=== PATIENT | male | born 1975 | race Caucasian/White ===

== ENCOUNTER 2017-07-11 20:07 | Emergency (ER) | payer SELFPAY ==
[2017-07-11 20:07] VITALS: BMI 31.6
--- NOTE | 2017-07-11 20:31 | C.PDOC ---
History Of Present Illness 42 y/o male presents to ED with complaints of sob and dizziness since earlier today. Patient states he has been outside all day painting and developed symptoms. Patient also reports pain to both legs and admits to being an occasional smoker. At ed patient is speaking in full sentences and denies loc, headache, chest pain or any other complaints at this time. Time Seen by Provider: 07/11/17 20:30 Chief Complaint (Nursing): Shortness Of Breath History Per: Patient History/Exam Limitations: no limitations Onset/Duration Of Symptoms: Hrs Current Symptoms Are (Timing): Still Present Quality: "Pain" Severity: Mild Pain Scale Rating Of: 2 Associated Symptoms: Dizziness Recent travel outside of the [place]: No Past Medical History Reviewed: Historical Data, Nursing Documentation, Vital Signs Vital Signs: Last Vital Signs Temp 98.3 F 07/11/17 20:14 Pulse 96 H 07/11/17 20:14 Resp 16 07/11/17 21:40 BP 139/93 H 07/11/17 20:14 Pulse Ox 97 07/11/17 21:30 - Medical History PMH: Anxiety, Asthma, Diabetes, Gastritis Surgical History: Hernia Repair Family History: States: No Known Family Hx - Social History Hx Tobacco Use: Yes Hx Alcohol Use: Yes Hx Substance Use: No - Immunization History Hx Tetanus Toxoid Vaccination: Yes Hx Influenza Vaccination: Yes Hx Pneumococcal Vaccination: Yes Review Of Systems Constitutional: Negative for: Fever, Chills Cardiovascular: Negative for: Chest Pain Respiratory: Positive for: Shortness of Breath Gastrointestinal: Negative for: Nausea, Vomiting Musculoskeletal: Positive for: Leg Pain. Negative for: Back Pain Skin: Negative for: Rash Neurological: Positive for: Dizziness. Negative for: Weakness, Numbness Physical Exam - Physical Exam Appears: Non-toxic, No Acute Distress Skin: Warm, Dry, No Rash Head: Normacephalic Eye(s): bilateral: PERRL, EOMI Oral Mucosa: Moist Chest: Symmetrical Cardiovascular: Rhythm Regular, No Murmur Respiratory: No Rales, No Rhonchi, No Wheezing Gastrointestinal/Abdominal: Soft, No Tenderness, No Guarding, No Rebound Extremity: No Pedal Edema, Capillary Refill (<2 seconds) Extremity: Bilateral: Atraumatic, Normal ROM Neurological/Psych: Oriented x3 ED Course And Treatment - Laboratory Results Result Diagrams: 07/11/17 21:28 07/11/17 21:28 O2 Sat by Pulse Oximetry: 97 (RA) Pulse Ox Interpretation: Normal - Radiology CXR: Interpreted by Me, Viewed By Me CXR Interpretation: No: Infiltrates, Fracture, Pnemothorax Reevaluation Time: 01:02 Reassessment Condition: Improved Medical Decision Making Medical Decision Making: Upon provider reevaluation patient is feeling better, is medically stable, and requires no further treatment in the ED at this time. Patient will be discharged home with Rx for albuterol, zithromax . Counseling was provided and all questions were answered regarding diagnosis and need for follow up with dr pavon. There is agreement to discharge plan. Return if symptoms persist or worsen. Disposition Counseled Patient/Family Regarding: Studies Performed, Diagnosis, Need For Followup, Rx Given - Disposition Referrals: Marvin Pavon MD [Medical Doctor] - Disposition: HOME/ ROUTINE Disposition Time: 20:31 Condition: FAIR Prescriptions: Albuterol HFA [Ventolin HFA 90 mcg/actuation (8 g)] 2 puff IH [id number] #1 puff Azithromycin [Zithromax Tri-Clint] 500 mg PO DAILY #3 tablet Instructions: Reactive Airways Disease (DC), Leg Pain (ED) Forms: [employer] (Azeri) - Clinical Impression Clinical Impression: Reactive airway disease, Leg pain - Scribe Statement The provider has reviewed the documentation as recorded by the Jhonnyibcharo Pascual All medical record entries made by the Scribe were at my direction and personally dictated by me. I have reviewed the chart and agree that the record accurately reflects my personal performance of the history, physical exam, medical decision making, and the department course for this patient. I have also personally directed, reviewed, and agree with the discharge instructions and disposition.
[2017-07-11] MEDS: Albuterol-Ipratrop 3 mg / 0.5 (3 ml) UD IH SCH ×3 (21:05→21:29)
[2017-07-11] MEDS ORDERED: Albuterol-Ipratrop 3 mg / 0.5 (3 ml) UD ONE (21:12)
[2017-07-11 21:38] LABS: BASO # 0.1 K/uL (0.0-0.2); BASO % 0.5 % (0.0-2.0); EOS # 0.2 K/uL (0.0-0.7); HEMATOCRIT 38.5 % (35.0-51.0); LYMPH # 2.1 K/uL (1.0-4.3); LYMPH % 18.5 % (20.0-40.0); MEAN CELL VOLUME 93.1 fL (80.0-94.0); MEAN CORPUSCULAR HEMOGLOBIN 32.1 pg (27.0-31.0); MEAN CORPUSCULAR HGB CONC 34.5 g/dL (33.0-37.0); MEAN PLATELET VOLUME 8.3 fL (7.2-11.7); MONO % 8.7 % (0.0-10.0); RED CELL DISTRIBUTION WIDTH 13.3 % (11.5-14.5); WHITE BLOOD COUNT 11.3 K/uL (4.8-10.8)
[2017-07-11 21:39] LABS: CHLORIDE 100 mmol/L (98-107)
[2017-07-11 21:40] LABS: SODIUM 137 mmol/L (132-148)
[2017-07-11 21:42] LABS: ALB/GLOB RATIO 1.3 (1.0-2.1); ALKALINE PHOSPHATASE 76 U/L (38-126); AST/SGOT 31 U/L (17-59); BILIRUBIN,TOTAL 0.5 mg/dL (0.2-1.3); BLOOD UREA NITROGEN 20 mg/dL (9-20); CARBON DIOXIDE 22 mmol/L (22-30); GFR AFRICAN-AMERICAN > 60; TOTAL PROTEIN 7.5 g/dL (6.3-8.3)
[2017-07-11 21:43] LABS: ALT/SGPT 44 U/L (21-72); CALCIUM 9.9 mg/dl (8.6-10.4); GLUCOSE,RANDOM 88 mg/dL (75-110)
[2017-07-11 21:57] LABS: RBC URINE 1 /hpf (0-3); URINE BILIRUBIN NEGATIVE (NEGATIVE); URINE BLOOD NEGATIVE (NEGATIVE); URINE COLOR Yellow (YELLOW); URINE GLUCOSE (UA) NORMAL (Normal); URINE KETONE NEGATIVE (NEGATIVE); URINE LEUKOCYTE ESTERASE NEG Leu/uL (Negative); URINE PROTEIN NEGATIVE (NEGATIVE); URINE UROBILINOGEN NORMAL mg/dL (0.2-1.0)
[2017-07-12 01:16] VITALS: BP 130/86; PULSE 90; RESP 20; TEMP 98.4; O2SAT 98
--- NOTE | 2017-07-12 07:17 | RAD ---
HISTORY: abd pain COMPARISON: None available. TECHNIQUE: Chest PA and lateral FINDINGS: Examination limited by habitus. LUNGS: No focal consolidation. Please note that chest x-ray has limited sensitivity for the detection of pulmonary masses. PLEURA: No significant pleural effusion identified. No definite pneumothorax . CARDIOVASCULAR: Heart size appears within normal limits. OSSEOUS STRUCTURES: Left lateral 7 rib fracture deformity appears chronic. Degenerative changes of the spine. VISUALIZED UPPER ABDOMEN: Unremarkable. OTHER FINDINGS: None. IMPRESSION: No focal consolidation, significant pleural effusion, or definite pneumothorax identified. Left lateral 7th rib fracture deformity appears chronic. Correlate clinically.
== END 2017-07-12 01:14 | disposition home or self-care (01) ==
LOC: C.ER 20:07
DX: J45.909 Unspecified asthma, uncomplicated (principal); M79.605 Pain in left leg; M79.604 Pain in right leg
CPT/HCPCS: 71020; 80053; 81001; 83690; 85025; 85610; 85730; 96374; 99283; J1885

== ENCOUNTER 2017-08-27 21:51 | Emergency (ER) | payer SELFPAY ==
[2017-08-27 21:52] VITALS: BMI 31.6
[2017-08-27 22:05] VITALS: BP 130/76; PULSE 92; RESP 20; TEMP 98.1; O2SAT 98
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
--- NOTE | 2017-08-28 10:32 | RAD ---
HISTORY: cough, fever COMPARISON: 07/11/2017 TECHNIQUE: Chest PA and lateral FINDINGS: LUNGS: No active pulmonary disease. PLEURA: No significant pleural effusion identified. No pneumothorax apparent. CARDIOVASCULAR: Normal. OSSEOUS STRUCTURES: No significant abnormalities. Old healed posterior lateral left rib fractures VISUALIZED UPPER ABDOMEN: Normal. OTHER FINDINGS: None. IMPRESSION: No active disease. No significant interval change compared to the prior examination(s). Concordant results with the preliminary interpretation rendered by the emergency department physician procedure.
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
== END 2017-08-28 00:25 | disposition home or self-care (01) ==
LOC: C.ER 21:51
DX: J20.9 Acute bronchitis, unspecified (principal); F17.210 Nicotine dependence, cigarettes, uncomplicated; S92.352D Displaced fracture of fifth metatarsal bone, left foot, subsequent encounter for fracture with routine healing; X95.9XXD Assault by unspecified firearm discharge, subsequent encounter

== ENCOUNTER 2017-09-07 08:58 | Emergency (ER) | payer SELFPAY ==
[2017-09-07 09:13] VITALS: RESP 18; TEMP 97.7
[2017-09-07] MEDS ORDERED: Naproxen 550 mg Tab PO STA (09:50)
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
[2017-09-07] MEDS ORDERED: Naproxen 550 mg Tab PO ONE (09:54)
[2017-09-07 10:08] VITALS: BP 130/86; PULSE 73
[2017-09-07 11:45] VITALS: O2SAT 99
== END 2017-09-07 10:13 | disposition home or self-care (01) ==
LOC: C.ER 08:58 → MERGE 08:58 → C.ER 10:13
DX: M79.672 Pain in left foot (principal); F41.9 Anxiety disorder, unspecified

== ENCOUNTER 2017-09-20 17:32 | Emergency (ER) | payer OTHER ==
[2017-09-20 17:32] VITALS: BMI 31.6
[2017-09-20 17:44] VITALS: BP 144/90; PULSE 100; RESP 20; TEMP 97.9; O2SAT 97
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
== END 2017-09-20 18:12 | disposition home or self-care (01) ==
LOC: C.ER 17:32
DX: Z76.0 Encounter for issue of repeat prescription (principal); S92.902G Unspecified fracture of left foot, subsequent encounter for fracture with delayed healing; X58.XXXD Exposure to other specified factors, subsequent encounter

== ENCOUNTER 2017-11-24 18:36 | Emergency (ER) | payer OTHER ==
[2017-11-24 18:37] VITALS: BMI 31.6
[2017-11-24 18:43] VITALS: BP 111/85; O2SAT 98
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
[2017-11-24 20:16] VITALS: PULSE 80; RESP 20; TEMP 98
== END 2017-11-24 20:16 | disposition home or self-care (01) ==
LOC: C.ER 18:36
DX: G89.29 Other chronic pain (principal); M79.671 Pain in right foot; Z76.0 Encounter for issue of repeat prescription

== ENCOUNTER 2018-01-14 18:55 | Emergency (ER) | payer SELFPAY ==
[2018-01-14 18:55] VITALS: BMI 31.6
[2018-01-14 19:23] VITALS: BP 166/89; PULSE 79; RESP 18; TEMP 98.7; O2SAT 95
--- NOTE | 2018-01-14 20:20 | C.PDOC ---
History Of Present Illness 42 year old male with PMH of anxiety brought in by EMS for evaluation of left hip and low back pain after fall from roof. Patient states "I was on roof shoveling snow". I slipped and fell landing on my left hip. He is uncooperative and not willing to change out clothes until seen by and requesting injection for pain. - HPI Time Seen by Provider: 01/14/18 19:33 Chief Complaint (Nursing): Trauma History Per: Patient History/Exam Limitations: no limitations Onset/Duration Of Symptoms: Hrs Injury Occurred (Timing): Just Before Arrival Past Medical History Reviewed: Historical Data, Nursing Documentation, Vital Signs Vital Signs: Last Vital Signs Temp 98.7 F 01/14/18 19:18 Pulse 79 01/14/18 19:18 Resp 18 01/14/18 19:18 BP 166/89 H 01/14/18 19:18 Pulse Ox 95 01/14/18 20:51 - Medical History PMH: Anxiety, Asthma, Diabetes, Gastritis Surgical History: Hernia Repair Family History: States: No Known Family Hx - Social History Hx Tobacco Use: Yes Hx Alcohol Use: Yes Hx Substance Use: No - Immunization History Hx Tetanus Toxoid Vaccination: Yes Hx Influenza Vaccination: Yes Hx Pneumococcal Vaccination: Yes Review Of Systems Constitutional: Negative for: Fever, Chills Eyes: Negative for: Vision Change Gastrointestinal: Negative for: Nausea, Vomiting Musculoskeletal: Positive for: Other (Hip pain) Skin: Negative for: Rash Neurological: Negative for: Headache Physical Exam - Physical Exam Appears: Non-toxic, Other (Anxious, Yelling "I need my shot") Skin: Warm, Dry, No Rash Head: Atraumatic, Normacephalic Eye(s): bilateral: Normal Inspection, EOMI Oral Mucosa: Moist Neck: Normal ROM, Supple Chest: Symmetrical Cardiovascular: Rhythm Regular, No Murmur Respiratory: Normal Breath Sounds, No Wheezing Gastrointestinal/Abdominal: Soft, No Distention, No Guarding Back: No CVA Tenderness, No Vertebral Tenderness, Decreased ROM (secondary to pain), Paraspinal Tenderness, No Straight Leg Raising, Other (Diffuse tenderness to left paralumbar and buttock area with minimal palpation) Extremity: Normal ROM, No Tenderness, No Deformity, No Swelling, Other (Left hip no leg shortnening. No ecchymosis) Neurological/Psych: Oriented x3, Normal Speech, Normal Motor, Normal Sensation Gait: Unable To Assess ED Course And Treatment O2 Sat by Pulse Oximetry: 95 (RA) Pulse Ox Interpretation: Normal Medical Decision Making Medical Decision Making: Patient reports he fell off a roof about 4 feet high. When asked what he was doing on roof, he states he was shoveling. Patient has shovel with him. Patient is not intoxicated but anxious, appears drug seeking and keeps repeatedly asking for pain meds. Xrays ordered of LS spine and hip after patient was given Toradol and finally changed into gown. There was no swelling, ecchymosis or bony tenderness. On re-eval patient asking for another shot. Lidoderm patch applied. Patient states he does not want to leave. I asked why and offered crisis. He declined. Patient given Rx, he is asking for percocet. Rx for Motrin and tramadol given. Patient stable for discharge Disposition Counseled Patient/Family Regarding: Studies Performed, Diagnosis, Need For Followup, Rx Given - Disposition Referrals: Kyra Merida MD [Staff Provider] - Disposition: HOME/ ROUTINE Disposition Time: 21:20 Condition: STABLE Additional Instructions: Apply heat to area 15 minutes three times a day. Take Motrin as needed for pain every 6 hours, with food to not upset stomach. Take Flexeril for muscle pain and spasm, caution can cause drowsiness. Follow up with orthopedic if pain persists over one week. Prescriptions: Ibuprofen [Motrin Tab] 800 mg PO Q12 PRN #20 tab PRN Reason: Pain, Severe (8-10) traMADol [Ultram] 50 mg PO Q8 #15 tab Instructions: Contusion (DC) Forms: [employer] (Central African), Work Excuse - POA Present On Arrival: Falls Or Trauma - Clinical Impression Clinical Impression: Contusion, hip, Low back pain, Fall on snow - PA / MATERIAL RECLAIMER / Resident Statement MD/DO has reviewed & agrees with the documentation as recorded. - Scribe Statement The provider has reviewed the documentation as recorded by the Gina Pascual All medical record entries made by the Jhonnyibcharo were at my direction and personally dictated by me. I have reviewed the chart and agree that the record accurately reflects my personal performance of the history, physical exam, medical decision making, and the department course for this patient. I have also personally directed, reviewed, and agree with the discharge instructions and disposition.
[2018-01-14] MEDS ORDERED: Lidocaine 5% Patch TD STA (21:03)
--- NOTE | 2018-01-15 10:48 | RAD ---
PROCEDURE: Radiographs of the Lumbar Spine. HISTORY: pain s.p fall COMPARISON: No prior. FINDINGS: BONES: Normal alignment. No listhesis. No significant appearing compression vertebral body lumbar fracture. 1 x 4 mm well corticated ossification borders the most superior L1 endplate at the T12-L1 level here there is regional L1 anterior superior spondylotic ridging as well present. Chronicity of this appearance is unknown -and may represent a limbus type vertebrae. No comparison studies are available to assess its stability. No retropulsed ossific fragment suggested. Elsewhere mild endplate ridging at the superior L5 endplate most notably. DISC SPACES: Probably minimal L4-5 disc space narrowing. OTHER FINDINGS: None. IMPRESSION: No significant appearing compression type lumbar vertebral body fracture. The well corticated ossification bordering the anterior T12-L1 level is nonspecific - a limbus type vertebrae is 1 consideration. Regional osteophytosis here noted.
--- NOTE | 2018-01-15 10:51 | RAD ---
PROCEDURE: Left Hip X-ray Radiographs. HISTORY: pain s.p fall COMPARISON: None. FINDINGS: BONES: No fracture appreciated. There is some super imposition Ing of the left greater trochanter over the left femoral head neck junction. No cortical interruption here however is appreciated. A left superior acetabular benign appearing small bone island is suggested JOINTS: Bilateral superolateral hip joint space narrowing with bilateral minimal acetabular spurring suggested. Left greater than right. The sacroiliac and pubic symphyseal joints appear normal. SOFT TISSUES: The fat planes around the the hip joints bilaterally appear intact and symmetrical. OTHER FINDINGS: None. IMPRESSION: No fracture appreciated. Bilateral hip osteoarthrosis left slightly greater than right.
== END 2018-01-14 22:00 | disposition home or self-care (01) ==
LOC: C.ER 18:55
DX: M54.5 Low back pain (principal); S70.02XA Contusion of left hip, initial encounter; W13.2XXA Fall from, out of or through roof, initial encounter; Y93.H1 Activity, digging, shoveling and raking; Y92.008 Other place in unspecified non-institutional (private) residence as the place of occurrence of the external cause
CPT/HCPCS: 72100; 73501; 96372; 99284; J1885

== ENCOUNTER 2018-02-03 12:19 | Emergency (ER) | payer SELFPAY ==
[2018-02-03 12:36] VITALS: BMI 34.9
[2018-02-03 12:49] VITALS: BP 140/81; PULSE 101; RESP 18; TEMP 98.3; O2SAT 96
--- NOTE | 2018-02-03 13:05 | C.PDOC ---
History Of Present Illness 42-year-old male, presents to the emergency department, requesting prophylactic treatment for STD. Patient states he had unprotected sex five days ago, and immediately afterward he developed lower abdominal discomfort, felt hot flashes in lower abdomen and associated generalized weakness, and non-bloody/watery diarrhea. Patient denies vomiting, fevers, chest pain, shortness of breath, dysuria/hematuria, penile discharge, lesions, or any other associated symptoms. No other complaints at this time. Chief Complaint (Nursing): Male Genitourinary History Per: Patient History/Exam Limitations: no limitations Past Medical History Reviewed: Historical Data, Nursing Documentation, Vital Signs Vital Signs: Last Vital Signs Temp 98.3 F 02/03/18 12:46 Pulse 101 H 02/03/18 12:46 Resp 18 02/03/18 12:46 BP 140/81 02/03/18 12:46 Pulse Ox 96 02/03/18 14:00 - Medical History PMH: Anxiety, Asthma, Diabetes, Gastritis Surgical History: Hernia Repair Family History: States: No Known Family Hx - Social History Hx Tobacco Use: Yes Hx Alcohol Use: Yes Hx Substance Use: No - Immunization History Hx Tetanus Toxoid Vaccination: No Hx Influenza Vaccination: No Hx Pneumococcal Vaccination: No Review Of Systems Constitutional: Positive for: Weakness. Negative for: Fever Gastrointestinal: Positive for: Diarrhea. Negative for: Vomiting, Hematochezia , Hematemesis Genitourinary: Negative for: Dysuria, Frequency, Incontinence, Hematuria, Penile Discharge, Scrotal Pain, Rash, Penile Pain Musculoskeletal: Negative for: Back Pain Skin: Negative for: Rash Neurological: Negative for: Weakness, Numbness, Headache, Dizziness Physical Exam - Physical Exam Appears: Well, Non-toxic, No Acute Distress Skin: Warm, Dry, No Rash Head: Normacephalic Eye(s): bilateral: PERRL Neck: Normal ROM Gastrointestinal/Abdominal: Soft, No Tenderness, No Guarding, No Rebound Extremity: Normal ROM, No Deformity, No Swelling Neurological/Psych: Oriented x3, Normal Speech ED Course And Treatment O2 Sat by Pulse Oximetry: 96 (RA) Pulse Ox Interpretation: Normal Progress Note: Patient treated with Rocephin and Azithromycin. UA and XR flat plate ordered, reveals +FOS, will discharge patient for outpatient f/u with PMD and Rx for Colace. Disposition Counseled Patient/Family Regarding: Studies Performed, Diagnosis, Need For Followup, Rx Given - Disposition Referrals: [facility] [Outside] Disposition: HOME/ ROUTINE Disposition Time: 13:58 Condition: STABLE Prescriptions: Docusate [Colace] 100 mg PO BID #20 cap Psyllium Husk (with Sugar) [Metamucil Smooth Texture] 3.4 gm PO DAILY #10 ml Instructions: Constipation, Adult (DC) Forms: [employer] (Yoruba), General Discharge Instructions - POA Present On Arrival: None - Clinical Impression Clinical Impression: Constipation - Scribe Statement The provider has reviewed the documentation as recorded by the Scribe (Lisa Tan) All medical record entries made by the Scribe were at my direction and personally dictated by me. I have reviewed the chart and agree that the record accurately reflects my personal performance of the history, physical exam, medical decision making, and the department course for this patient. I have also personally directed, reviewed, and agree with the discharge instructions and disposition.
[2018-02-03] MEDS ORDERED: cefTRIAXone (Rocephin) 250 mg Inj IM STA (13:24)
[2018-02-03 13:34] LABS: URINE BACTERIA RARE (<OCC); URINE BILIRUBIN NEGATIVE (NEGATIVE); URINE BLOOD NEGATIVE (NEGATIVE); URINE CLARITY Hazy (Clear); URINE COLOR Amber (YELLOW); URINE GLUCOSE (UA) NORMAL (Normal); URINE LEUKOCYTE ESTERASE TRACE Leu/uL (Negative); URINE PROTEIN NEGATIVE (NEGATIVE); URINE UROBILINOGEN NORMAL mg/dL (0.2-1.0)
--- NOTE | 2018-02-03 15:07 | RAD ---
HISTORY: abdominal pain COMPARISON: No prior. FINDINGS: BOWEL: Nonspecific bowel gas pattern. BONES: Normal. OTHER FINDINGS: None. IMPRESSION: Nonspecific bowel gas pattern.
== END 2018-02-03 14:05 | disposition home or self-care (01) ==
LOC: C.ER 12:19
DX: K59.00 Constipation, unspecified (principal)
CPT/HCPCS: 74018; 81001; 96372; 99284; J0696

== ENCOUNTER 2018-05-15 19:06 | Emergency (ER) | payer SELFPAY ==
[2018-05-15 19:37] VITALS: BP 145/83; PULSE 94; RESP 20; TEMP 98.6; O2SAT 95; BMI 38.2
--- NOTE | 2018-05-15 19:46 | C.PDOC ---
Chief Complaint (Nursing): Abdominal Pain Past Medical History Vital Signs: Last Vital Signs Temp 98.6 F 05/15/18 19:30 Pulse 94 H 05/15/18 19:30 Resp 20 05/15/18 19:30 BP 145/83 05/15/18 19:30 Pulse Ox 95 05/15/18 19:46 - Medical History PMH: Anxiety, Asthma, Diabetes, Gastritis Denies: Hepatitis, HIV, HTN, Seizures, Sexually Transmitted Disease Surgical History: Hernia Repair Family History: States: Unknown Family Hx - Social History Hx Tobacco Use: Yes Hx Alcohol Use: Yes Hx Substance Use: No - Immunization History Hx Tetanus Toxoid Vaccination: Yes Hx Influenza Vaccination: No Hx Pneumococcal Vaccination: No ED Course And Treatment O2 Sat by Pulse Oximetry: 95 Disposition Counseled Patient/Family Regarding: Diagnosis - Disposition Referrals: [facility] [Outside] Disposition: HOME/ ROUTINE Disposition Time: 19:43 Condition: STABLE Additional Instructions: stopped using Milk of Magnesia every day. Prescriptions: Docusate Sodium [Colace] 100 mg PO BID #14 capsule Instructions: High Fiber Diet, Constipation, Adult (DC) Forms: [employer] (Turkish) - POA Present On Arrival: None - Clinical Impression Clinical Impression: Constipation
--- NOTE | 2018-05-15 19:48 | C.PDOC ---
History Of Present Illness 43 y/o male presents to ED for complaints of "watery stool" that began 2 days ago. Denies pain, nausea, or vomiting. Chief Complaint (Nursing): Abdominal Pain History Per: Patient History/Exam Limitations: no limitations Onset/Duration Of Symptoms: Hrs Current Symptoms Are (Timing): Still Present Radiation Of Pain To:: None Quality Of Discomfort: Unable To Describe Associated Symptoms: Diarrhea. denies: Fever, Chills, Nausea, Vomiting Exacerbating Factors: None Alleviating Factors: None Last Bowel Movement: Today Recent travel outside of the [place]: No Past Medical History Reviewed: Historical Data, Nursing Documentation, Vital Signs Vital Signs: Last Vital Signs Temp 98.6 F 05/15/18 19:30 Pulse 94 H 05/15/18 19:30 Resp 20 05/15/18 19:30 BP 145/83 05/15/18 19:30 Pulse Ox 95 05/15/18 19:49 - Medical History PMH: Anxiety, Asthma, Diabetes, Gastritis Surgical History: Hernia Repair Family History: States: Unknown Family Hx - Social History Hx Tobacco Use: Yes Hx Alcohol Use: Yes Hx Substance Use: No - Immunization History Hx Tetanus Toxoid Vaccination: Yes Hx Influenza Vaccination: No Hx Pneumococcal Vaccination: No Review Of Systems Constitutional: Negative for: Fever, Chills Gastrointestinal: Positive for: Diarrhea. Negative for: Nausea, Vomiting, Abdominal Pain, Constipation Skin: Negative for: Rash Neurological: Negative for: Weakness, Numbness Physical Exam - Physical Exam Appears: Well, Non-toxic, No Acute Distress, Other (Non-watery stool ) Skin: Normal Color, Warm, Dry Head: Atraumatic, Normacephalic Eye(s): bilateral: Normal Inspection, PERRL, EOMI Oral Mucosa: Moist Neck: Supple Chest: Symmetrical, No Tenderness Cardiovascular: Rhythm Regular, No Murmur Respiratory: Normal Breath Sounds, No Decreased Breath Sounds, No Rales, No Rhonchi, No Wheezing Gastrointestinal/Abdominal: Normal Exam, Soft, No Tenderness, No Distention, No Guarding, No Rebound Extremity: Normal ROM, No Tenderness, No Deformity, Other (No pain or injuries) Extremity: Bilateral: Atraumatic, Normal Color And Temperature, Normal ROM Neurological/Psych: Oriented x3, Normal Speech Gait: Steady ED Course And Treatment O2 Sat by Pulse Oximetry: 95 (RA) Pulse Ox Interpretation: Normal Disposition Counseled Patient/Family Regarding: Diagnosis - Disposition Referrals: [facility] [Outside] Disposition: HOME/ ROUTINE Disposition Time: 19:50 Condition: STABLE Additional Instructions: stopped using Milk of Magnesia every day. Prescriptions: Docusate Sodium [Colace] 100 mg PO BID #14 capsule Instructions: High Fiber Diet, Constipation, Adult (DC) Forms: [employer] (Vietnamese) - Clinical Impression Clinical Impression: Constipation - Scribe Statement The provider has reviewed the documentation as recorded by the Scribcharo Milian All medical record entries made by the Jhonnyibe were at my direction and personally dictated by me. I have reviewed the chart and agree that the record accurately reflects my personal performance of the history, physical exam, medical decision making, and the department course for this patient. I have also personally directed, reviewed, and agree with the discharge instructions and disposition.
== END 2018-05-15 19:58 | disposition home or self-care (01) ==
LOC: C.ER 19:06
DX: K59.00 Constipation, unspecified (principal)

== ENCOUNTER 2018-07-15 19:54 | Emergency (ER) | payer SELFPAY ==
[2018-07-15 19:54] VITALS: BMI 34.9
[2018-07-15 20:19] VITALS: BP 156/108; PULSE 88; RESP 20; TEMP 98.5; O2SAT 96
[2018-07-15] MEDS ORDERED: Ipratropium 0.02% Inhal Soln (0.5 mg/2.5 ml) UD IH STA (20:46)
[2018-07-15] MEDS ORDERED: Albuterol-Ipratrop 3 mg / 0.5 (3 ml) UD IH STA (20:46)
[2018-07-15] MEDS ORDERED: Albuterol 0.083% Inhal Sol (2.5 mg/3 mL) UD IH STA ×2 (20:47→20:52)
[2018-07-15] MEDS ORDERED: Albuterol-Ipratrop 3 mg / 0.5 (3 ml) UD ONE (20:55)
[2018-07-15] MEDS ORDERED: Albuterol 0.083% Inhal Sol (2.5 mg/3 mL) UD ONE (21:10)
--- NOTE | 2018-07-15 21:49 | C.PDOC ---
History Of Present Illness 43 year old male presents to the ED complaining of productive cough with yellow sputum ongoing for the last 3 weeks. He denies any fever, chills, SOB, n/v/d, or any other symptoms. Time Seen by Provider: 07/15/18 20:31 Chief Complaint (Nursing): Cough, Cold, Congestion History Per: Patient History/Exam Limitations: no limitations Onset/Duration Of Symptoms: Days Current Symptoms Are (Timing): Still Present Associated Symptoms: Cough, Sputum. denies: Fever, Nausea, Vomiting, Diarrhea Past Medical History Reviewed: Historical Data, Nursing Documentation, Vital Signs Vital Signs: Last Vital Signs Temp 98.5 F 07/15/18 20:17 Pulse 88 07/15/18 20:17 Resp 20 07/15/18 20:17 BP 156/108 H 07/15/18 20:17 Pulse Ox 96 07/15/18 20:17 - Medical History PMH: Anxiety, Asthma, Diabetes, Gastritis Denies: Hepatitis, HIV, HTN, Seizures, Sexually Transmitted Disease Surgical History: Hernia Repair Family History: States: No Known Family Hx - Social History Hx Tobacco Use: Yes Hx Alcohol Use: Yes Hx Substance Use: No - Immunization History Hx Tetanus Toxoid Vaccination: No Hx Influenza Vaccination: No Hx Pneumococcal Vaccination: No Review Of Systems Except As Marked, All Systems Reviewed And Found Negative. Constitutional: Negative for: Fever, Chills Respiratory: Positive for: Cough, Sputum. Negative for: Shortness of Breath Gastrointestinal: Negative for: Nausea, Vomiting, Diarrhea Physical Exam - Physical Exam Appears: Toxic Skin: Warm, Dry Head: Normacephalic Eye(s): bilateral: Normal Inspection Nose: Normal Oral Mucosa: Moist Neck: Normal ROM Chest: Symmetrical Cardiovascular: Rhythm Regular Respiratory: Wheezing (B/L) Gastrointestinal/Abdominal: Soft, No Tenderness Extremity: Normal ROM Neurological/Psych: Oriented x3, Normal Speech Gait: Steady ED Course And Treatment O2 Sat by Pulse Oximetry: 96 (RA) Pulse Ox Interpretation: Normal Progress Note: Patient treated with Zithromax and given Albuterol and Prednisone treatment. CXR ordered. Disposition - Disposition Referrals: Marvin Calzada MD [Primary Care Provider] - - PA / HADOOP ANALYST / Resident Statement MD/DO has reviewed & agrees with the documentation as recorded. - Scribe Statement The provider has reviewed the documentation as recorded by the Scribe Moraima Paneque All medical record entries made by the Gina were at my direction and personally dictated by me. I have reviewed the chart and agree that the record accurately reflects my personal performance of the history, physical exam, medical decision making, and the department course for this patient. I have also personally directed, reviewed, and agree with the discharge instructions and disposition.
--- NOTE | 2018-07-15 21:49 | C.PDOC ---
History Of Present Illness 43 year old male presents to the ED complaining of productive cough with yellow sputum ongoing for the last 3 weeks. He denies any fever, chills, SOB, n/v/d, or any other symptoms. Time Seen by Provider: 07/15/18 20:31 Chief Complaint (Nursing): Cough, Cold, Congestion History Per: Patient History/Exam Limitations: no limitations Onset/Duration Of Symptoms: Days Current Symptoms Are (Timing): Still Present Past Medical History Reviewed: Historical Data, Nursing Documentation, Vital Signs Vital Signs: Last Vital Signs Temp 98.5 F 07/15/18 20:17 Pulse 88 07/15/18 20:17 Resp 20 07/15/18 20:17 BP 156/108 H 07/15/18 20:17 Pulse Ox 96 07/15/18 20:17 - Medical History PMH: Anxiety, Asthma, Diabetes, Gastritis Denies: Hepatitis, HIV, HTN, Seizures, Sexually Transmitted Disease Surgical History: Hernia Repair Family History: States: No Known Family Hx - Social History Hx Tobacco Use: Yes Hx Alcohol Use: Yes Hx Substance Use: No - Immunization History Hx Tetanus Toxoid Vaccination: No Hx Influenza Vaccination: No Hx Pneumococcal Vaccination: No Review Of Systems Except As Marked, All Systems Reviewed And Found Negative. Constitutional: Negative for: Fever, Chills Respiratory: Positive for: Cough, Sputum. Negative for: Shortness of Breath Gastrointestinal: Negative for: Nausea, Vomiting, Diarrhea Physical Exam - Physical Exam Appears: Non-toxic Skin: Warm, Dry Head: Normacephalic Eye(s): bilateral: Normal Inspection Nose: Normal Oral Mucosa: Moist Neck: Normal ROM Chest: Symmetrical Cardiovascular: Rhythm Regular Respiratory: Wheezing (B/L) Gastrointestinal/Abdominal: Soft, No Tenderness Extremity: Normal ROM Neurological/Psych: Oriented x3, Normal Speech ED Course And Treatment O2 Sat by Pulse Oximetry: 96 (RA) Pulse Ox Interpretation: Normal - Radiology CXR: Interpreted by Me CXR Interpretation: Yes: No Acute Disease Progress Note: Patient treated with Zithromax po and given Duoneb, Albuterol and Prednisone treatment. CXR ordered. On re-evaluation patient feels better, no ,longer has wheezing and is stable to be d/chome with PMD follow up. Disposition - Disposition Referrals: Marvin Calzada MD [Primary Care Provider] - Disposition: HOME/ ROUTINE Disposition Time: 21:47 Condition: STABLE Additional Instructions: Follow up with your PMD within 1-2 days. Return to ED if feel worse. Prescriptions: Fluticasone Nasal [Flonase] 1 spr NS BID #1 spr predniSONE [predniSONE Tab] 2 tab PO DAILY #8 tab Albuterol Sulfate [Proair Hfa] 1 puff IH Q6 PRN #1 inh PRN Reason: Cough Benzonatate [Tessalon Perles] 2 tab PO TID #60 sgl Azithromycin [Zithromax] 250 mg PO DAILY #4 tab Forms: [employer] (Togolese) - Clinical Impression Clinical Impression: Bronchitis, Asthma exacerbation - PA / MIXER OPERATOR TABLETS / Resident Statement MD/DO has reviewed & agrees with the documentation as recorded. - Scribe Statement The provider has reviewed the documentation as recorded by the Scribcharo Walker All medical record entries made by the Gina were at my direction and personally dictated by me. I have reviewed the chart and agree that the record accurately reflects my personal performance of the history, physical exam, medical decision making, and the department course for this patient. I have also personally directed, reviewed, and agree with the discharge instructions and disposition.
--- NOTE | 2018-07-16 09:17 | RAD ---
Date of service: 07/15/2018 HISTORY: productive cough COMPARISON: Chest radiographs 08/27/2017. TECHNIQUE: Chest PA and lateral FINDINGS: LUNGS: No active pulmonary disease. PLEURA: No significant pleural effusion identified. No pneumothorax apparent. CARDIOVASCULAR: Normal. OSSEOUS STRUCTURES: Old healed left 7th lateral rib fracture identified once again. VISUALIZED UPPER ABDOMEN: Normal. OTHER FINDINGS: None. IMPRESSION: No interval acute cardiopulmonary disease appreciated.
== END 2018-07-15 22:00 | disposition home or self-care (01) ==
LOC: C.ER 19:54 → SUPCPDRO 19:54 → C.ER 22:00
DX: J45.901 Unspecified asthma with (acute) exacerbation (principal)

== ENCOUNTER 2018-09-16 19:52 | Emergency (ER) | payer SELFPAY ==
[2018-09-16 19:52] VITALS: BMI 34.9
[2018-09-16 20:15] VITALS: BP 147/83; PULSE 110; RESP 14; TEMP 97.9; O2SAT 96
--- NOTE | 2018-09-16 20:58 | C.PDOC ---
History Of Present Illness 43 year old male presents to the ED c/o variety symptoms including nasal congestion, dry mouth, occasional abdominal bloating. Patient claims he recently had unprotected sex few weeks ago. Patient denies fever, chills, nausea, vomit, diarrhea, dysuria, hematuria, back pain, penile discharge. Time Seen by Provider: 09/16/18 20:31 Chief Complaint (Nursing): Abdominal Pain History Per: Patient History/Exam Limitations: no limitations Onset/Duration Of Symptoms: Days Current Symptoms Are (Timing): Still Present Location Of Pain/Discomfort: Diffuse Quality Of Discomfort: "Pain" Associated Symptoms: denies: Nausea, Vomiting, Diarrhea, Urinary Symptoms Alleviating Factors: None Recent travel outside of the [place]: No Additional History Per: Patient Past Medical History Reviewed: Historical Data, Nursing Documentation, Vital Signs Vital Signs: Last Vital Signs Temp 97.9 F 09/16/18 20:11 Pulse 110 H 09/16/18 20:11 Resp 14 09/16/18 20:11 BP 147/83 09/16/18 20:11 Pulse Ox 96 09/16/18 20:11 - Medical History PMH: Anxiety, Asthma, Diabetes, Gastritis Denies: Hepatitis, HIV, HTN, Seizures, Sexually Transmitted Disease Surgical History: Hernia Repair Family History: States: Unknown Family Hx - Social History Hx Tobacco Use: Yes Hx Alcohol Use: Yes Hx Substance Use: No - Immunization History Hx Tetanus Toxoid Vaccination: No Hx Influenza Vaccination: No Hx Pneumococcal Vaccination: No Review Of Systems Constitutional: Negative for: Fever, Chills ENT: Positive for: Nose Congestion Cardiovascular: Negative for: Chest Pain Respiratory: Negative for: Cough, Shortness of Breath Gastrointestinal: Positive for: Abdominal Pain. Negative for: Nausea, Vomiting, Diarrhea Genitourinary: Negative for: Dysuria, Hematuria, Penile Discharge, Penile Pain Musculoskeletal: Negative for: Back Pain Skin: Negative for: Rash Physical Exam - Physical Exam Appears: Non-toxic, No Acute Distress, Other (obese white male, bizarre affect, tangential, circumlocutious) Skin: Normal Color, Warm, Dry Head: Atraumatic, Normacephalic Eye(s): bilateral: Normal Inspection Oral Mucosa: Moist Neck: Normal ROM, Supple Chest: Symmetrical Cardiovascular: Rhythm Regular Respiratory: Normal Breath Sounds, No Rales, No Rhonchi, No Wheezing Gastrointestinal/Abdominal: Soft, No Tenderness, No Guarding, No Rebound Extremity: Normal ROM, No Tenderness, No Swelling Neurological/Psych: Oriented x3, Normal Speech, Normal Cognition Gait: Steady ED Course And Treatment O2 Sat by Pulse Oximetry: 96 (ON RA) Pulse Ox Interpretation: Normal Medical Decision Making Medical Decision Making: Plan: * Motrin 600 mg PO * Sudafed 30 mg PO mild viral syndrome symptoms benign belly bizarre, convoluted story no acute STD issues, referred to [facility] for futher eval PRN Disposition Doctor Will See Patient In The: Office Counseled Patient/Family Regarding: Studies Performed, Diagnosis - Disposition Referrals: Marvin Calzada MD [Medical Doctor] - Disposition: HOME/ ROUTINE Disposition Time: 20:57 Condition: GOOD Additional Instructions: OTC Cold medicines as directed for your mild Viral Syndrome symptoms Outpatient follow-up @ the [facility] for evaluation for STD's as needed Instructions: Anxiety, Adult (DC), Gas and Bloating, Viral Syndrome (DC) Forms: [employer] (Malaysian) - Clinical Impression Clinical Impression: Abdominal bloating, Anxiety, Nasal congestion - Scribe Statement The provider has reviewed the documentation as recorded by the Scribe Rupert Orellana All medical record entries made by the Scribe were at my direction and personally dictated by me. I have reviewed the chart and agree that the record accurately reflects my personal performance of the history, physical exam, medical decision making, and the department course for this patient. I have also personally directed, reviewed, and agree with the discharge instructions and disposition.
== END 2018-09-16 21:13 | disposition home or self-care (01) ==
LOC: C.ER 19:52
DX: R09.81 Nasal congestion (principal); R14.0 Abdominal distension (gaseous); F41.9 Anxiety disorder, unspecified

== ENCOUNTER 2019-01-27 10:19 | Emergency (ER) | payer SELFPAY ==
[2019-01-27 10:29] VITALS: BMI 35.7
[2019-01-27 10:30] VITALS: RESP 18; TEMP 99.1
[2019-01-27] MEDS ORDERED: Albuterol-Ipratrop 3 mg / 0.5 (3 ml) UD INH STA (10:54)
[2019-01-27] MEDS ORDERED: Albuterol-Ipratrop 3 mg / 0.5 (3 ml) UD ONE (11:00)
--- NOTE | 2019-01-27 11:17 | C.PDOC ---
History Of Present Illness 43-year-old male presents to the ED for evaluation of cough for one week. Patient reports scant yellow sputum noted today. Patient admits to smoking cigarettes and has had many prior visits for reactive airway disease. Patient denies fever, chills. Time Seen by Provider: 01/27/19 10:49 Chief Complaint (Nursing): Cough, Cold, Congestion History Per: Patient History/Exam Limitations: no limitations Onset/Duration Of Symptoms: Other (one week ) Current Symptoms Are (Timing): Still Present Past Medical History Reviewed: Historical Data, Nursing Documentation, Vital Signs Vital Signs: Last Vital Signs Temp 99.1 F 01/27/19 10:29 Pulse 102 H 01/27/19 10:29 Resp 18 01/27/19 10:29 BP 124/82 01/27/19 10:29 Pulse Ox 97 01/27/19 10:29 - Medical History PMH: Anxiety, Asthma, Diabetes, Gastritis Denies: Hepatitis, HIV, HTN, Seizures, Sexually Transmitted Disease Surgical History: Hernia Repair Family History: States: Unknown Family Hx - Social History Hx Tobacco Use: Yes Hx Alcohol Use: Yes Hx Substance Use: No - Immunization History Hx Tetanus Toxoid Vaccination: No Hx Influenza Vaccination: No Hx Pneumococcal Vaccination: No Review Of Systems Respiratory: Positive for: Cough, Sputum (yellow ) Physical Exam - Physical Exam Appears: Non-toxic, No Acute Distress Skin: Normal Color, Warm, Dry Head: Atraumatic, Normacephalic Eye(s): bilateral: Normal Inspection Nose: Other (nasal erythema ) Oral Mucosa: Moist Throat: Normal, No Erythema, No Exudate Neck: Supple Chest: Symmetrical, No Deformity, No Tenderness Cardiovascular: Rhythm Regular, No Murmur Respiratory: No Rales, Rhonchi (scattered), Wheezing (scattered) Extremity: Normal ROM, Capillary Refill (less than 2 seconds ) Neurological/Psych: Normal Speech, Normal Cognition, Other (anxious, bizarre ) ED Course And Treatment O2 Sat by Pulse Oximetry: 97 Pulse Ox Interpretation: Normal Progress Note: CXR ordered and reviewed. Abluterol INH, Zithromax PO, and Prednisone PO given. Medical Decision Making Medical Decision Making: viral syndrome smoker reactive airway no pna/pnx steroid burst nebs/puffer curb smoking Disposition Doctor Will See Patient In The: Office Counseled Patient/Family Regarding: Studies Performed, Diagnosis - Disposition Referrals: Landon Redd Jr., MD [Staff Provider] - Disposition: HOME/ ROUTINE Disposition Time: 11:17 Condition: GOOD Additional Instructions: chest x-ray NO pneumonia Bronchitis: Prednisone 40 mg for 4 more days Duoneb inhaled treatments w TWO ampules of Duoneb every 3-4 hours Albuterol puffer 2 puffs ( by 15 seconds) every 3-4 hours when away from nebs machine Always use with Aerochamber Spacer (plastic tube) makes is MUCH more effective. Azithromycin (antibiotic) continue 250 mg tab for 4 more days outpatient follow-up w your PMD as needed in 2-3 days. Prescriptions: Albuterol HFA [Ventolin HFA 90 mcg/actuation (8 g)] 2 puff IH Q4H PRN #1 puff PRN Reason: bronchitis Albuterol/Ipratropium [Duoneb 3 MG/3 Ml-0.5 MG/3 Ml 3 Ml] 6 ml IH Q4H PRN #100 neb PRN Reason: asthma Azithromycin 1 tab PO DAILY #4 tab Nebulizer [Compact Compressor Nebulizer] 1 dev XX PRN PRN #1 dev PRN Reason: asthma Prednisone [Deltasone] 40 mg PO DAILY #8 tablet Spacer, Inhalation [Aerochamber] 1 dev IH DAILY #1 dev Instructions: Chronic Bronchitis Forms: [facility] (Bulgarian) - Clinical Impression Clinical Impression: Bronchitis - Scribe Statement The provider has reviewed the documentation as recorded by the Scribe (Marisabel Durbin) Provider Attestation: All medical record entries made by the Scribe were at my direction and personally dictated by me. I have reviewed the chart and agree that the record accurately reflects my personal performance of the history, physical exam, medical decision making, and the department course for this patient. I have also personally directed, reviewed, and agree with the discharge instructions and disposition.
--- NOTE | 2019-01-27 11:22 | RAD ---
HISTORY: cough, bronchitis vs PNA COMPARISON: Chest x-ray performed 07/15/18 TECHNIQUE: Chest PA and lateral, 2 views FINDINGS: LUNGS: Mild biapical pleural thickening. No focal consolidation. Please note that chest x-ray has limited sensitivity for the detection of pulmonary masses. PLEURA: No significant pleural effusion identified. No definite pneumothorax . CARDIOVASCULAR: Heart size appears within normal limits. Atherosclerotic calcifications present. OSSEOUS STRUCTURES: Degenerative changes. VISUALIZED UPPER ABDOMEN: Mild elevation of the right hemidiaphragm. OTHER FINDINGS: None. IMPRESSION: No focal consolidation.
[2019-01-27 11:33] VITALS: BP 128/72; PULSE 93
[2019-01-27 12:08] VITALS: O2SAT 97
--- NOTE | 2019-01-28 20:31 | CARD ---
APPROVED REPORT Date of service: 01/27/2019 EKG Measurement Heart [id number] <Conclusion> Normal sinus rhythm Normal ECG
== END 2019-01-27 11:33 | disposition home or self-care (01) ==
LOC: C.ER 10:19
DX: J40 Bronchitis, not specified as acute or chronic (principal); E11.9 Type 2 diabetes mellitus without complications; F17.210 Nicotine dependence, cigarettes, uncomplicated

== ENCOUNTER 2019-02-11 21:13 | Emergency (ER) | payer MEDICAID ==
[2019-02-11 21:14] VITALS: BMI 35.7
--- NOTE | 2019-02-11 22:04 | C.PDOC ---
History Of Present Illness 43 year old male presents to the ED for evaluation of auditory hallucinations. Patient reports having a sound amplifier at home, voice do not say anything in particular. Patient denies SI/HI, visual hallucinations, other medical comp laints at this time. Chief Complaint (Nursing): Psychiatric Evaluation History Per: Patient History/Exam Limitations: no limitations Onset/Duration Of Symptoms: Hrs Current Symptoms Are (Timing): Still Present Suicide/Self Injury Attempted (Context): None Associated Symptoms: Paranoia. denies: Depression, Suicidal Thoughts, Suicidal Plan Recent travel outside of the [place]: No Additional History Per: Patient Past Medical History Reviewed: Historical Data, Nursing Documentation, Vital Signs Vital Signs: Last Vital Signs Temp 98.4 F 02/11/19 21:29 Pulse 86 02/11/19 21:29 Resp 18 02/11/19 21:29 BP 139/90 02/11/19 21:29 Pulse Ox 98 02/11/19 21:29 Primary Care Provider: Non [facility] Provider, - Medical History PMH: Anxiety, Asthma, Diabetes, Gastritis Denies: Hepatitis, HIV, HTN, Chronic Kidney Disease, Seizures, Sexually Transmitted Disease Surgical History: Hernia Repair Family History: States: Unknown Family Hx - Social History Hx Tobacco Use: Yes Hx Alcohol Use: Yes Hx Substance Use: No - Immunization History Hx Tetanus Toxoid Vaccination: No Hx Influenza Vaccination: Yes Hx Pneumococcal Vaccination: No Review Of Systems Constitutional: Negative for: Fever, Chills Cardiovascular: Negative for: Chest Pain Respiratory: Negative for: Shortness of Breath Gastrointestinal: Negative for: Nausea, Vomiting, Abdominal Pain Skin: Negative for: Rash Neurological: Negative for: Weakness, Numbness Psych: Positive for: Psychosis. Negative for: Depression, Suicidal ideation Physical Exam - Physical Exam Appears: Non-toxic, No Acute Distress Skin: Normal Color, Warm, Dry Head: Atraumatic, Normacephalic Eye(s): bilateral: Normal Inspection Neck: Normal ROM, Supple Chest: Symmetrical Cardiovascular: Rhythm Regular Respiratory: Normal Breath Sounds, No Rales, No Rhonchi, No Wheezing Gastrointestinal/Abdominal: Soft, No Tenderness, No Guarding, No Rebound Extremity: Normal ROM, No Tenderness, No Swelling Neurological/Psych: Oriented x3, Normal Speech, Normal Cognition Gait: Steady ED Course And Treatment - Laboratory Results Result Diagrams: 02/11/19 22:17 02/11/19 22:17 ECG: Interpreted By Me, Viewed By Me ECG Rhythm: Sinus Rhythm ECG Interpretation: Normal Interpretation Of ECG: NSR, normal tracings. Rate From EC O2 Sat by Pulse Oximetry: 98 (ON RA) Pulse Ox Interpretation: Normal - Radiology CXR: Interpreted by Me, Viewed By Me CXR Interpretation: Yes: No Acute Disease, Other (normal chest film.). No: Infiltrates Progress Note: 0207H medically cleared for psych. evaluation. Medical Decision Making Medical Decision Making: Plan: * Labs * UA Disposition Discussed With DrZak: Tung Rivera Counseled Patient/Family Regarding: Diagnosis - Disposition Disposition: Trans to Other Acute Care Hosp Disposition Time: 07:00 Condition: STABLE Forms: [employer] (Sudanese) - POA Present On Arrival: None - Clinical Impression Clinical Impression: Schizophrenia - Scribe Statement The provider has reviewed the documentation as recorded by the Scribe Rupert Orellana All medical record entries made by the Scribe were at my direction and personally dictated by me. I have reviewed the chart and agree that the record accurately reflects my personal performance of the history, physical exam, medical decision making, and the department course for this patient. I have also personally directed, reviewed, and agree with the discharge instructions and disposition.
[2019-02-11 22:23] LABS: BASO # 0.2 K/uL (0.0-0.2); BASO % 2.6 % (0.0-2.0); EOS # 0.3 K/uL (0.0-0.7); EOS % 5.4 % (0.0-4.0); HEMOGLOBIN 13.6 g/dL (12.0-18.0); LYMPH # 1.7 K/uL (1.0-4.3); LYMPH % 29.5 % (20.0-40.0); MEAN CELL VOLUME 95.5 fL (80.0-94.0); MEAN CORPUSCULAR HEMOGLOBIN 33.1 pg (27.0-31.0); MEAN CORPUSCULAR HGB CONC 34.7 g/dL (33.0-37.0); MONO # 0.5 K/uL (0.0-0.8); MONO % 8.9 % (0.0-10.0); NEUT # 3.2 K/uL (1.8-7.0); NEUT % 53.6 % (50.0-75.0); RBC 4.1 Mil/uL (4.40-5.90); RED CELL DISTRIBUTION WIDTH 13.4 % (11.5-14.5); WHITE BLOOD COUNT 5.9 K/uL (4.8-10.8)
[2019-02-11 22:40] LABS: ALB/GLOB RATIO 1.4 (1.0-2.1); ALT/SGPT 31 U/L (21-72); AST/SGOT 32 U/L (17-59); BLOOD UREA NITROGEN 15 mg/dL (9-20); GFR NON-AFRICAN AMERICAN > 60
[2019-02-11 23:43] LABS: URINE BILIRUBIN NEGATIVE (NEGATIVE); URINE BLOOD NEGATIVE (NEGATIVE); URINE CLARITY Clear (Clear); URINE COLOR Yellow (YELLOW); URINE GLUCOSE (UA) NORMAL (Normal); URINE LEUKOCYTE ESTERASE NEG Leu/uL (Negative); URINE PROTEIN NEGATIVE (NEGATIVE); URINE UROBILINOGEN NORMAL mg/dL (0.2-1.0)
[2019-02-12] LABS: BARBITURATES, UR NEGATIVE (NEGATIVE); BENZODIAZEPINES, UR NEGATIVE (NEGATIVE); OPIATES, UR NEGATIVE (NEGATIVE); PHENCYCLIDINE, UR NEGATIVE (NEGATIVE)
--- NOTE | 2019-02-12 10:13 | RAD ---
HISTORY: for clearance for psych. referral COMPARISON: Chest x-ray performed 01/27/19 TECHNIQUE: Chest PA and lateral, 2 views FINDINGS: LUNGS: No focal consolidation. Please note that chest x-ray has limited sensitivity for the detection of pulmonary masses. PLEURA: No significant pleural effusion identified. No definite pneumothorax . CARDIOVASCULAR: Heart size appears within normal limits. Atherosclerotic calcifications. OSSEOUS STRUCTURES: Degenerative changes. VISUALIZED UPPER ABDOMEN: Mild elevation of the right hemidiaphragm. OTHER FINDINGS: None. IMPRESSION: No focal consolidation.
[2019-02-12] MEDS ORDERED: Albuterol 0.083% Inhal Sol (2.5 mg/3 mL) UD ONE (14:05)
--- NOTE | 2019-02-12 14:18 | PCM.PSYCH ---
Initial Psychiatric Evaluation - Initial Psychiatric Evaluation Type of Admission: Voluntary Legal Status: Capacity Past Psychiatric History - Past Psychiatric History Pertinent Medical Hx (Current Medical&Sleep Prob, Allergies): Allergies Allergy/AdvReac Type Severity Reaction Status Date / Time No Known Allergies Allergy Verified 02/11/19 21:37 Albuterol Sulfate [Proair Hfa] 1 puff IH Q6 PRN #1 inh 07/15/18 Albuterol HFA [Ventolin HFA 90 mcg/actuation (8 g)] 2 puff IH Q4H PRN #1 puff 01/27/19 Albuterol/Ipratropium [Duoneb 3 MG/3 Ml-0.5 MG/3 Ml 3 Ml] 6 ml IH Q4H PRN #100 neb 01/27/19 Budesonide/Formoterol Fumarate [Symbicort] 1 aer IH PRN PRN 01/27/19 Nebulizer [Compact Compressor Nebulizer] 1 dev XX PRN PRN #1 dev 01/27/19 Spacer, Inhalation [Aerochamber] 1 dev IH DAILY #1 dev 01/27/19
[2019-02-12 22:08] VITALS: BP 148/94; PULSE 88; RESP 20; TEMP 98.8; O2SAT 98
--- NOTE | 2019-02-13 11:02 | CARD ---
APPROVED REPORT Date of service: 02/12/2019 EKG Measurement Heart [id number] <Conclusion> Normal sinus rhythm Normal ECG
== END 2019-02-12 22:14 | disposition short-term general hospital (02) ==
LOC: C.ER 21:13
DX: F20.9 Schizophrenia, unspecified (principal); E11.9 Type 2 diabetes mellitus without complications; Z72.0 Tobacco use